=== PATIENT | male | born 2000 | race Hispanic/Latino ===

== ENCOUNTER 2020-08-03 07:38 | Emergency (ER) | payer MEDICAID, OTHER ==
[~2020-08-03] VITALS: Ht 182.9 cm; Wt 99.8 kg
[2020-08-03] MEDS ORDERED: CIPROFLOXACIN HCL 0.2%/HYDROCORT 1% 10 ML OTIC SUSP OTIC SCH (08:30)
[2020-08-03] MEDS ORDERED: HYDROCODONE/ACETAMINOPHEN 5/325 MG TAB PO SCH (08:30)
[2020-08-03] MEDS ORDERED: IBUP-2077 PO (08:30)
[2020-08-03] MEDS ORDERED: CIPR7.5D OT (08:30)
[2020-08-03 09:04] VITALS: BP 124/76
== END 2020-08-03 09:04 | disposition home or self-care (01) ==
LOC: EDH 07:38
DX: H60.91 Unspecified otitis externa, right ear (principal)

== ENCOUNTER 2023-04-06 19:42 | Emergency (ER) | payer OTHER ==
[~2023-04-06] VITALS: Ht 182.9 cm; Wt 113.4 kg
[~2023-04-06 19:42] MED LIST: CIPR7.5D OT; IBUP-2077 PO
[2023-04-06 21:05] VITALS: BP 135/74; PULSE 78; RESP 18
[2023-04-06 21:24] LABS: APPEARANCE,URINE CLEAR (CLEAR); BILIRUBIN,URINE NEGATIVE (NEGATIVE); COLOR,URINE YELLOW (YELLOW); GLUCOSE, URINE (UA) NEGATIVE (NEGATIVE); KETONES,URINE 20 mg/dL (NEGATIVE); LEUKOCYTE ESTERASE ,URINE NEGATIVE Leu/uL (NEGATIVE); NITRATE,URINE NEGATIVE (NEGATIVE); OCCULT BLOOD,URINE NEGATIVE (NEGATIVE); PROTEIN,URINE 30 mg/dL (NEGATIVE); UROBILINOGEN,URINE 0.2 mg/dL (0.2-1.0)
[2023-04-06 21:27] LABS: ADD UA MICROSCOPIC YES
[2023-04-06 21:29] LABS: BACTERIA,URINE RARE /HPF (None Seen); MUCUS,URINE MOD LPF (None Seen); RBC,URINE 0-1 /HPF (0-1); WBC,URINE 0-1 /HPF (0-1)
[2023-04-06] MEDS: CEFTRIAXONE 1G VIAL IM ONE (23:03)
[2023-04-06] MEDS: AZITHROMYCIN 250 MG TABLET PO ONE (23:03)
== END 2023-04-06 23:12 | disposition home or self-care (01) ==
LOC: EDH 19:42
DX: N34.2 Other urethritis (principal); Z79.899 Other long term (current) drug therapy
CPT/HCPCS: 99283; 87797; 87486; 81001; 96372; J0696